=== PATIENT | female | born 1990 | race African-American/Black ===

== ENCOUNTER 2016-06-30 14:40 | Emergency (ER) | payer MEDICAID ==
[2016-06-30] MEDS ORDERED: OPTIRAY 350 100 ML VIAL HMH IV ONE (14:41)
== END 2016-06-30 17:52 | disposition home or self-care (01) ==
LOC: ER 14:40
CPT/HCPCS: 36415; 71020; 71260; 80053; 82553; 84484; 84703; 85025; 85379; 93005